=== PATIENT | male | born 1965 | race Caucasian/White ===

== ENCOUNTER → 2023-08-15 | Outpatient (CLI) | payer BC ==
--- NOTE | 2023-08-15 09:52 | US ---
EXAMINATION TYPE: US liver DATE OF EXAM: 08/15/2023 COMPARISON: NONE CLINICAL INDICATION: Male, 58 years old with history of R94.5 ABNORMAL RESULTS OF LIVER FUNCTION STUD IES; Abnormal LFT's TECHNIQUE: Multiple sonographic images of the right upper quadrant are obtained. FINDINGS: EXAM MEASUREMENTS: Liver Length: 15.7 cm Gallbladder Wall: 0.3 cm CBD: 0.4 cm Right Kidney: 10.2 x 4.3 x 5.0 cm LASER SPECIALIST NOTES: Pancreas: 3mm panc duct visualized, tail obscured by overlying bowel gas Liver: Heterogeneous, difficult to penetrate Gallbladder: wnl Evidence for sonographic Chand's sign: No CBD: wnl Right Kidney: wnl IMPRESSION: 1. Hepatic steatosis. 2. No acute process.
== END | disposition home or self-care (01) ==
LOC: RADUSWWP 08:11
PROVIDERS: ATTEND Internal Medicine
DX: K76.0 Fatty (change of) liver, not elsewhere classified (principal); R79.89 Other specified abnormal findings of blood chemistry; R94.5 Abnormal results of liver function studies
CPT/HCPCS: 76705